=== PATIENT | female | born 1945 | race Caucasian/White ===

== ENCOUNTER 2021-08-29 19:22 | Observation (INO) | payer MEDICARE, SELFPAY ==
[2021-08-29 19:24] VITALS: BP 216/90; PULSE 79; RESP 18; TEMP 37.2; O2SAT 98; BMI 28.3
[2021-08-29 19:31] VITALS: BMI 28.3
--- NOTE | 2021-08-29 19:32 | ECG_ITS ---
APPROVED REPORT Exam: Resting ECG HR:84 bpm ECG Measurements Heart Rate 84 AXES [place] 184 P 43 QRSd 142 QRS 89 QT 410 T 51 QTc 451 Conclusion SINUS RHYTHM RIGHT BUNDLE BRANCH BLOCK [120+ ms QRS DURATION, UPRIGHT V1, 40+ ms S IN I/aVL/V4/V5/V6] ST DEPRESSION, CONSIDER SUBENDOCARDIAL INJURY [0.1+ mV ST DEPRESSION] ABNORMAL ECG UNCONFIRMED REPORT Electronically signed by : Hung Gomes MD 08/30/2021 15:49:13
--- NOTE | 2021-08-29 19:32 | XR_ITS ---
PROCEDURE INFORMATION: Exam: XR Chest Exam date and time: 08/29/2021 7:36 PM Age: 76 years old Clinical indication: Pain; Other: Epigastric; Additional info: Chest burning TECHNIQUE: Imaging protocol: XR of the chest. Views: 2 views. COMPARISON: CR CXR CHEST(2 VIEWS-NOT PORTABLE) 06/28/2016 3:21 PM FINDINGS: Lungs: No consolidation. Pleural spaces: No pleural effusion. No pneumothorax. Heart/Mediastinum: Stable prominent cardiac silhouette. Bones/joints: Degenerative changes of the shoulders. Intraperitoneal space: Calcified left upper quadrant mass as seen on prior examination. IMPRESSION: No acute cardiopulmonary process.
[2021-08-29 19:51] LABS: Basophils # 0.1 K/mm3 (0-0.2); Eosinophils # 0.6 K/mm3 (0.0-0.4); Hematocrit 30.1 % (37.0-47.0); Hemoglobin 10.2 g/dL (12.2-16.2); Lymphocytes # 2.1 K/mm3 (0.7-4.5); Lymphocytes % 24.5 % (10-50); Mean Corpuscular HGB Conc 33.8 g/dL (31.8-35.4); Mean Corpuscular Hemoglobin 27.2 pg (27.0-31.2); Mean Corpuscular Volume 80.3 fl (81-99); Mean Platelet Volume 7.9 fl (7.4-10.4); Monocytes # 0.4 K/mm3 (0.1-1.0); Monocytes % 4.4 % (1.7-9.3); Neutrophils # 5.4 K/mm3 (1.8-7.8); Platelet Count 278 K/mm3 (142-424); Red Blood Count 3.75 M/mm3 (4.20-5.40); Red Cell Distribution Width 15.5 % (11.5-17.5); White Blood Count 8.6 K/mm3 (4.8-10.8)
[2021-08-29 19:53] LABS: Chloride 105 mmol/L (98-107)
[2021-08-29 19:54] LABS: Potassium 4.2 mmoL/L (3.5-5.1); Sodium 140 mmol/L (136-145)
[2021-08-29 19:56] LABS: Alanine Aminotransferase 17 U/L (12-78); Amylase 111 U/L (30-110); Anion Gap 13.2 mEq/L (5-15); Aspartate Amino Transferase 34 U/L (14-36); Bilirubin,Unconjugated 0.2 mg/dL (0.0-1.1); Blood Urea Nitrogen 13 mg/dl (7-17); Carbon Dioxide 26 mmol/L (22.0-30.0); Creatinine Clearance Estimated 49 mL/min (50-200); Estimated Glomerular Filt Rate 48 ml/min (>60); GFR (African American) 58 ML/MIN (>60)
[2021-08-29 19:57] LABS: Albumin Level 3.8 g/dl (3.5-5.0); Alkaline Phosphatase 81 U/L (38-126); Bilirubin,Direct 0.1 mg/dl (0.0-0.4); Bilirubin,Indirect 0.2 mg/dL (0.0-0.9); Bilirubin,Total 0.3 mg/dl (0.2-1.3); Calcium 9.6 mg/dl (8.4-10.2); Glucose 128 mg/dl (74-100); Lipase 432 U/L (23-300); Total Protein,Serum 6.7 g/dl (6.3-8.2)
[2021-08-29 20:03] LABS: C-Reactive Protein 18.3 mg/L (0-4)
--- NOTE | 2021-08-29 20:08 | HMH.EDCP ---
ED Disposition Clinical Impression: Heart murmur, systolic Chest pain Qualifiers: Chest pain type: precordial pain Qualified Code(s): R07.2 - Precordial pain Disposition: Admitted as Observation Condition on Discharge: Good Referrals: Ivy Irene APRN [Primary Care Provider] - - Critical Care Critical Care Time: No Attestation: On 08/29/21, the high probability of a clinically significant, sudden or life threatening deterioration of the following system(s) required my full and direct attention, intervention and personal management. The time I documented below is in addition to time spent performing reported procedures but includes the following listed in this critical care notation. Medical Decision Making - Medical Records Medical records reviewed: Yes: I reviewed the patient's medical records. - Mike Inquiry Pt receiving controlled substance: No Vital Signs: 08/29/21 19:24 Temperature 99.0 F Temperature Source Oral Pulse Rate [Right] 79 Respiratory Rate 18 Blood Pressure [Right Arm] 216/90 H Blood Pressure Mean [Right Arm] 132 02 Sat by Pulse Oximetry 98 - Lab Data Lab results reviewed: Yes: I reviewed the patient's lab results. Lab Results 08/29/21 19:40: WBC 8.6, RBC 3.75 L, Hgb 10.2 L, Hct 30.1 L, MCV 80.3 L, MCH 27.2, MCHC 33.8, RDW 15.5, Plt Count 278, MPV 7.9, Neut % (Auto) 63.0, Lymph % (Auto) 24.5, Zavala % (Auto) 4.4, Eos % (Auto) 7.0, Baso % (Auto) 1.0, Neut # (Auto) 5.4, Lymph # (Auto) 2.1, Zavala # (Auto) 0.4, Eos # (Auto) 0.6 H, Baso # (Auto) 0.1, ESR 116 H 08/29/21 19:40: Sodium 140, Potassium 4.2, Chloride 105, Carbon Dioxide 26, Anion Gap 13.2, BUN 13, Creatinine 1.10 H, Estimated Creat Clear 49, Estimated GFR 48 L, Est GFR ( Amer) 58 L, Glucose 128 H, Calcium 9.6, Total Bilirubin 0.3, Direct Bilirubin 0.1, Conjugated Bilirubin 0.0, Indirect Bilirubin 0.2, Unconjugated Bilirubin 0.2, AST 34, ALT 17, Alkaline Phosphatase 81, Troponin I < 0.01, C-Reactive Protein 18.3 H, Total Protein 6.7, Albumin 3.8, Amylase 111 H, Lipase 432 H, Procalcitonin 0.093 08/29/21 20:21: SARS-CoV-2 (PCR) Not detected, Influenza A Untype (PCR) Not detected, Influenza Type B (PCR) Not detected Result diagrams: 08/29/21 19:40 08/29/21 19:40 Orders (Tests/Meds): ED MEDICATIONS Generic Name Dose Route Start Last Admin Trade Name Freq PRN Reason Stop Dose Admin Sodium Chloride 1,000 mls @ 999 mls/hr 08/29/21 19:45 08/29/21 19:47 Sod Chlor 0.9% 1000ml Bag IV 08/29/21 20:45 999 mls/hr .Q1H1M MENA Administration Sodium Chloride 8 ml 08/29/21 20:12 08/29/21 20:14 Sodium Chloride 0.9% 10ml Vial IV 09/28/21 20:11 8 ml NEEDED PRN Administration dilute pepcid Discontinued Medications Generic Name Dose Route Start Last Admin Trade Name Freq PRN Reason Stop Dose Admin Aspirin 324 mg 08/29/21 19:38 08/29/21 19:43 Aspirin 81mg Chewable Tablet PO 08/29/21 19:39 324 mg ONCE ONE Administration Famotidine 20 mg 08/29/21 20:12 08/29/21 20:14 Famotidine 20mg/2ml Vial IV 08/29/21 20:13 20 mg ONCE ONE Administration Iopamidol 75 ml 08/29/21 20:54 08/29/21 20:56 Iopamidol-370 (76%);100ml Bottle IV 08/29/21 20:55 75 ml ONCE ONE Administration Metoclopramide HCl 10 mg 08/29/21 20:12 08/29/21 20:14 Metoclopramide Hcl 10mg/2ml Vial IVP 08/29/21 20:13 10 mg ONCE ONE Administration Morphine Sulfate 4 mg 08/29/21 20:07 08/29/21 20:10 Morphine 4mg/Ml Syringe IV 08/29/21 20:08 4 mg ONCE ONE Administration Nitroglycerin 0.4 mg 08/29/21 19:38 08/29/21 19:43 Nitroglycerin 0.4mg Sl Tablet SL 08/29/21 19:39 0.4 mg ONCE ONE Administration Nitroglycerin 1 gm 08/29/21 19:50 08/29/21 19:51 Nitroglycerin 1 Gm Ointment TD 08/29/21 19:51 1 gm ONCE ONE Administration Ondansetron HCl 4 mg 08/29/21 20:07 08/29/21 20:10 Ondansetron 4mg/2ml Vial IV 08/29/21 20:08 4 mg ONCE ONE Administration Sodium Chloride
--- NOTE | 2021-08-29 20:11 | CT_ITS ---
PROCEDURE INFORMATION: Exam: CT Abdomen And Pelvis With Contrast Exam date and time: 08/29/2021 8:39 PM Age: 76 years old Clinical indication: Abdominal pain; Localized; Other: Straight up the middle; Additional info: Abd pain TECHNIQUE: Imaging protocol: Computed tomography of the abdomen and pelvis with contrast. Radiation optimization: All CT scans at this facility use at least one of these dose optimization techniques: automated exposure control; mA and/or kV adjustment per patient size (includes targeted exams where dose is matched to clinical indication); or iterative reconstruction. Contrast material: ISOVUE; Contrast volume: 75 ml; Contrast route: IV; COMPARISON: RUQ US RUQ-(ABD LTD)1ORGAN/QUAD/FU 03/08/2016 9:34 AM FINDINGS: Heart: Cardiomegaly. Liver: Normal. No mass. Gallbladder and bile ducts: No calcified stones. No ductal dilation. Pancreas: Normal enhancement. No ductal dilation. Spleen: 5.1 x 4.1 cm rim calcified anterior inferior splenic lesion. Adrenal glands: No mass. Kidneys and ureters: Peripelvic cysts. No hydronephrosis. Stomach and bowel: Diverticulosis coli without evidence for diverticulitis. Appendix: No evidence of appendicitis. Intraperitoneal space: No free air. No significant fluid collection. Vasculature: Calcified atherosclerosis. No aneurysm. Lymph nodes: No enlarged lymph nodes. Urinary bladder: No acute abnormality. Reproductive: No acute abnormality. Bones/joints: Degenerative changes of the spine. No fracture. Soft tissues: Right fat containing groin hernia measuring 4.3 x 2.5 cm. Fat containing ventral hernia measuring 4.6 x 2.4 cm. IMPRESSION: 1. 5.1 x 4.1 cm rim calcified anterior inferior splenic lesion most compatible with a posttraumatic pseudocyst. 2. Diverticulosis coli without evidence for diverticulitis. 3. Ventral and right groin fat containing hernias described above.
[2021-08-29 20:12] LABS: Troponin I < 0.01 ng/ml (0.00-0.034)
[2021-08-29 20:20] LABS: Erythrocyte Sedimentation Rate 116 mm/hr (0-30)
[2021-08-29 20:31] LABS: Coronavirus 19, PCR Not Detected (NotDetected); Influenza A, PCR Not Detected (NotDetected); Influenza B, PCR Not Detected (NotDetected)
[2021-08-29 20:34] LABS: Procalcitonin 0.093 ng/mL (0.0-2.0)
--- NOTE | 2021-08-29 21:56 | PC.NURSE ---
Dr. Weiss on phone with Dr. Swenson re: admission
--- NOTE | 2021-08-29 22:08 | PC.NURSE ---
Patient admitted to [address] Swenson with chest pain.
[2021-08-29 22:43] VITALS: BP 156/75; PULSE 78; RESP 18; TEMP 37.2; O2SAT 98
[2021-08-29 22:46] VITALS: BP 150/63; PULSE 77; RESP 16; TEMP 36.9; O2SAT 94; BMI 28.9; BMI 29.2
--- NOTE | 2021-08-29 23:08 | PC.NURSE ---
Pt ambulatory to bathroom with no assistance
--- NOTE | 2021-08-29 23:15 | PC.NURSE ---
patient up to floor via wheelchair @ this time.
[2021-08-29 23:25] VITALS: PULSE 80
[2021-08-29 23:49] LABS: Troponin I < 0.01 ng/ml (0.00-0.034)
[2021-08-30] VITALS: PULSE 80
[2021-08-30 01:50] LABS: Troponin I < 0.01 ng/ml (0.00-0.034)
[2021-08-30 03:23] VITALS: BP 146/69; PULSE 73; RESP 16; TEMP 36.8; O2SAT 94
[2021-08-30 04:00] VITALS: PULSE 70
[2021-08-30 05:00] VITALS: BMI 29.2
--- NOTE | 2021-08-30 05:26 | PC.NURSE ---
Around 0330 pt c/o a constant chest ache that radiates to back - rating it 5/10. EKG obtained and took to ED MD, no acute changes, showing BBB. . Pt still has nitro paste on from ED. Vitals stable, no other accompanying symptoms, troponins have been neg x 3. Dr. Swenson contacted. New orders obtained. Medicated per JUN. When pt took ordered medications she said it hurt to swallow. No other complaints at this time and is resting comfortably. Pt is currently NPO. Cardiology consult ordered. Call light in reach.
[2021-08-30 06:36] LABS: Basophils % 0.6 % (0.1-2.0); Eosinophils # 0.3 K/mm3 (0.0-0.4); Eosinophils % 4.8 % (0.1-12.0); Hematocrit 25.3 % (37.0-47.0); Lymphocytes # 1.4 K/mm3 (0.7-4.5); Lymphocytes % 22.3 % (10-50); Mean Corpuscular HGB Conc 33.5 g/dL (31.8-35.4); Mean Corpuscular Hemoglobin 26.9 pg (27.0-31.2); Mean Corpuscular Volume 80.3 fl (81-99); Mean Platelet Volume 7.9 fl (7.4-10.4); Monocytes # 0.4 K/mm3 (0.1-1.0); Monocytes % 5.5 % (1.7-9.3); Neutrophils # 4.3 K/mm3 (1.8-7.8); Neutrophils % 66.8 % (37.0-80.0); Platelet Count 224 K/mm3 (142-424); Red Blood Count 3.15 M/mm3 (4.20-5.40); Red Cell Distribution Width 15.4 % (11.5-17.5); White Blood Count 6.4 K/mm3 (4.8-10.8)
[2021-08-30 06:44] LABS: Anion Gap 9.7 mEq/L (5-15); Blood Urea Nitrogen 11 mg/dl (7-17); Calcium 8.8 mg/dl (8.4-10.2); Carbon Dioxide 25 mmol/L (22.0-30.0); Chloride 108 mmol/L (98-107); Creatinine Clearance Estimated 56 mL/min (50-200); Estimated Glomerular Filt Rate 61 ml/min (>60); GFR (African American) 73 ML/MIN (>60); Glucose 122 mg/dl (74-100); Magnesium 1.6 mg/dl (1.6-2.3); Potassium 3.7 mmoL/L (3.5-5.1); Sodium 139 mmol/L (136-145)
[2021-08-30 06:49] LABS: Hemoglobin 8.5 g/dL (12.2-16.2)
--- NOTE | 2021-08-30 07:18 | P.CONPHA_ITS ---
[facility] Pharmacy VTE Monitoring - Patient Demographics Admission date: 08/29/21 Report Date: 08/30/21 Time: 07:18 Allergies/Adverse Reactions: Patient Allergies cefaclor Allergy (Unknown, Verified 08/29/21 19:38) I-RASH Penicillins Allergy (Unknown, Verified 08/29/21 19:38) I-RASH Sulfa (Sulfonamide Antibiotics) Allergy (Unknown, Verified 08/29/21 19:38) I-RASH Height: 1.6 m Weight: 74.843 kg Patient Problems: Current Active Problems Chest pain (Acute) Heart murmur, systolic (Acute) - VTE Risk Labs: VTE Related Lab Results Hgb 8.5 g/dL (12.2-16.2) L D 08/30/21 05:39 Hct 25.3 % (37.0-47.0) L 08/30/21 05:39 Plt Count 224 K/mm3 (142-424) 08/30/21 05:39 BUN 11 mg/dl (7-17) 08/30/21 05:39 Creatinine 0.90 mg/dl (0.52-1.04) 08/30/21 05:39 Estimated Creat Clear 56 mL/min (50-200) 08/30/21 05:39 Was VTE Risk Assessment Performed: Yes VTE Score: 4 VTE Risk Level: Low Risk - Prophylaxis VTE Prophylaxis Ordered?: Yes Types of VTE Prophylaxis: TEDS Knee High Location of Applied Device: Bilateral Lower Extremeties
[2021-08-30 08:00] VITALS: BP 178/69; PULSE 67; PULSE 74; RESP 16; TEMP 37.1; O2SAT 94
--- NOTE | 2021-08-30 08:25 | HMH.PHAINT ---
MEDICATION RECONCILIATION COMPLETED ON PATIENT USING EXTERNAL FILL HISTORY FROM PHARMACY. -SRIRAM DAVIS, [employer]
--- NOTE | 2021-08-30 09:05 | US_ITS ---
FINAL REPORT CLINICAL HISTORY: abd pain, mid chest pain FINDINGS: Sonographic images of the right upper quadrant were obtained. The pancreas is partially obscured. There is mild fatty infiltration of the liver. There is a mild amount of sludge in the gallbladder. There is no evidence of biliary ductal dilatation.The common duct measures 4mm. The right kidney measures 9.0 cm in length. There is a cystic area in the lower pole of the right kidney which may represent focal hydronephrosis or a parapelvic cyst. IMPRESSION: Fatty liver. Sludge in the gallbladder. Cystic area in the lower pole of right kidney may represent focal hydronephrosis or a parapelvic cyst. Reviewed, Interpreted and Dictated by Oswaldo Tony III, MD Transcribed by Chari Toussaint Authenticated by Oswaldo Tony III, MD on 08/30/2021 09:19:[address] [facility]
--- NOTE | 2021-08-30 12:17 | HMH.HPDC ---
General - General Admission date:: 08/29/21 Discharge date: 08/30/21 *Admission Date: 08/29/21 *Chief complaint: Epigastric pain *History of present illness: 76-year-old white female with overall good functional status and no cardiac history, who over the past couple of days has had increasing problems with epigastric pain that has been food related. She noticed that several days ago she was placed on antibiotics and high-dose ibuprofen for a dental abscess by her dentist. She is been taking high-dose ibuprofen for about a week and a couple days ago began to have significant epigastric pain when she swallowed food. Came to the emergency department. Troponins were negative, lipase was slightly elevated. She was admitted to hospital overnight for further observation. [facility] History I have reviewed the patient's past medical history: Yes Medical History: Reports:: Diabetes Mellitus Type 2, Heart Murmur, Hyperlipidemia, Hypertension Denies:: Cancer, Diabetes Mellitus Type 1, MRSA *Have you ever received a pneumonia vaccine?: Yes *Have you received a flu vaccine this season?: Yes Other Medical History: Reports: Arthritis, Cataracts, Glaucoma, Sinus Problems, Thyroid Disease Laterality Cases: Bilateral: Cataract Other Surgeries: Yes: (x2) Amputation: No Fractures: No - *Social History Last grade of school completed: Advanced degree Smoking Status: Never smoker Alcohol Intake: never *Occupational Status:: retired Housing: house Household Members: spouse *Travel in the last 8 weeks: None Family Hx:: Cancer, Coronary Artery Disease, Diabetes, Heart Attack Review of Systems - Review of Systems Review of systems:: pertinent systems reviewed and negative unless documented below - *Neurologic Denies seizure-like activity Exam Vital signs and Labs for Last 24 Hours: Temp Pulse Resp BP Pulse Ox 98.8 F 74 16 178/69 H 94 L 08/30/21 08:00 08/30/21 08:00 08/30/21 08:00 08/30/21 08:00 08/30/21 08:00 Laboratory Results - last 24 hr 08/29/21 19:40: WBC 8.6, RBC 3.75 L, Hgb 10.2 L, Hct 30.1 L, MCV 80.3 L, MCH 27.2, MCHC 33.8, RDW 15.5, Plt Count 278, MPV 7.9, Neut % (Auto) 63.0, Lymph % (Auto) 24.5, Pierce % (Auto) 4.4, Eos % (Auto) 7.0, Baso % (Auto) 1.0, Neut # (Auto) 5.4, Lymph # (Auto) 2.1, Pierce # (Auto) 0.4, Eos # (Auto) 0.6 H, Baso # (Auto) 0.1, ESR 116 H 08/29/21 19:40: Sodium 140, Potassium 4.2, Chloride 105, Carbon Dioxide 26, Anion Gap 13.2, BUN 13, Creatinine 1.10 H, Estimated Creat Clear 49, Estimated GFR 48 L, Est GFR ( Amer) 58 L, Glucose 128 H, Calcium 9.6, Total Bilirubin 0.3, Direct Bilirubin 0.1, Conjugated Bilirubin 0.0, Indirect Bilirubin 0.2, Unconjugated Bilirubin 0.2, AST 34, ALT 17, Alkaline Phosphatase 81, Troponin I < 0.01, C-Reactive Protein 18.3 H, Total Protein 6.7, Albumin 3.8, Amylase 111 H, Lipase 432 H, Procalcitonin 0.093 08/29/21 20:21: SARS-CoV-2 (PCR) Not detected, Influenza A Untype (PCR) Not detected, Influenza Type B (PCR) Not detected 08/29/21 23:00: Troponin I < 0.01 08/30/21 01:15: Troponin I < 0.01 08/30/21 05:39: WBC 6.4 D, RBC 3.15 L, Hgb 8.5 L D, Hct 25.3 L, MCV 80.3 L, MCH 26.9 L, MCHC 33.5, RDW 15.4, Plt Count 224, MPV 7.9, Neut % (Auto) 66.8, Lymph % (Auto) 22.3, Pierce % (Auto) 5.5, Eos % (Auto) 4.8, Baso % (Auto) 0.6, Neut # (Auto) 4.3, Lymph # (Auto) 1.4, Pierce # (Auto) 0.4, Eos # (Auto) 0.3, Baso # (Auto) 0.0 08/30/21 05:39: Sodium 139, Potassium 3.7, Chloride 108 H, Carbon Dioxide 25, Anion Gap 9.7, BUN 11, Creatinine 0.90, Estimated Creat Clear 56, Estimated GFR 61, Est GFR ( Amer) 73 D, Glucose 122 H, Calcium 8.8, Magnesium 1.6 I & O for Last 24 hours: Intake & Output 08/28/21 08/29/21 08/30/21 08/31/21 11:59 11:59 11:59 11:59 Intake Total 300 / 300 Balance 300 / 300 Weight 165 lb 0.009 oz - Constitutional no acute distress - *Routine HEENT Exam Head: Present: normocephalic Eye: Present: EOMI, PERRL ENT: Present: mucous membra
[2021-08-30 12:22] VITALS: BP 140/49; PULSE 67; RESP 16; TEMP 36.8; O2SAT 96
--- NOTE | 2021-08-31 14:13 | CARE MANAGER ---
Contacted patient related to hospital discharge. She states she is doing well. She picked up her medication and is aware of her follow up appointment. She denies any questions or concerns.
== END 2021-08-30 13:12 | disposition home or self-care (01) ==
LOC: ER 22:13 → 2ND 22:46
PROVIDERS: Emergency Medicine; Admitting Provider Internal Medicine Adolescent Medicine; Emergency Provider Emergency Medicine; PCP Nurse Practitioner Family; Visit Provider Internal Medicine Adolescent Medicine
DX: K20.90 Esophagitis, unspecified without bleeding (principal); R10.13 Epigastric pain; R07.9 Chest pain, unspecified; E11.9 Type 2 diabetes mellitus without complications; E78.5 Hyperlipidemia, unspecified; I10 Essential (primary) hypertension; Z79.84 Long term (current) use of oral hypoglycemic drugs; Z79.899 Other long term (current) drug therapy; Z20.822 Contact with and (suspected) exposure to COVID-19
CPT/HCPCS: G0378; 36415; 71046; 74177; 76705; 80048; 80076; 82150; 83690; 83735; 84145; 84484; 85025; 85651; 86140; 93005; 93306; 96375; 99285; C9803; J2405; Q9967; U0003; U0005

== ENCOUNTER 2023-02-11 08:57 | Emergency (ER) | payer MEDICARE, SELFPAY ==
[2023-02-11 09:15] VITALS: BP 130/87; PULSE 75; RESP 18; TEMP 36.8; O2SAT 97; BMI 28.1
--- NOTE | 2023-02-11 09:32 | EXP.UTC ---
Discharge Plan Disposition Patient Disposition: Home, Self-Care Condition: Good Prescriptions Prescriptions: New azithromycin [Zithromax] 250 mg tablet See Rx Instructions .ROUTE .COMPLEX Qty: 6 0RF Rx Instructions: For 250 mg dose pack: take 500 mg today (day 1), then 250 mg for 4 days (days 2-5) benzonatate 100 mg capsule 100 mg PO BID PRN (Reason: cough) 3 Days Qty: 6 0RF No Action amlodipine 2.5 MG tablet 5 mg PO DAILY simvastatin 40 MG tablet 40 mg PO HS levothyroxine 88 MCG tablet 88 mcg PO DAILY hydrochlorothiazide 25 MG tablet 25 mg PO DAILY sitagliptin phos-metformin 1 EACH tablet, ER multiphase 24 hr 1 tab PO BID aspirin 81 MG tablet,delayed release (DR/EC) 81 mg PO DAILY lisinopril 40 MG tablet 40 mg PO DAILY timolol maleate 5 ML bottle 1 drp OP Q12H pantoprazole 40 MG tablet,delayed release (DR/EC) 40 mg PO BID Qty: 60 0RF latanoprost 0.005 % drops 1 drp Eye-Left DAILY Referrals Follow up/Referrals: Hung Gomes MD [Primary Care Provider] - See instructions Activity Restrictions/Add. Instructions Additional Instructions/Restrictions: Start antibiotics today be sure to take it as ordered with the full length of time although you should start feeling better in 24-48 hours. Change toothbrush and toothpaste 24-48 hours after starting antibiotics Tylenol or Motrin as needed for fever or pain Encourage fluids, water, Gatorade, Powerade, try cold fluids, popsicles, ice cream will make it feel better You are contagious for 24 hours. Avoid kissing anyone, no eating or drinking after anyone. You are contagious. Follow-up the ER for new or worsening symptoms or no noticeable improvement over the next 24-48 hours. Follow-up with PCP this week. Clinical Impressions Clinical Impression: Strep sore throat Instructions Patient Instructions: DI for Strep Throat Discharge ED Provider: Christal ([facility] HPI General Stated complaint: cough Mode of Arrival: Ambulatory Source of Information: Patient Limitations: No Limitations Time Seen by Provider: 02/11/23 09:32 Description of Symptoms (Recalled from Triage Doc. by RN): Productive cough HEENT Symptoms (Recalled from RN notes): Yes Resp Symptoms (Recalled from RN notes): No Skin Symptoms (Recalled from RN notes): No MS Symptoms (Recalled from RN notes): No Functional Status (Recalled from RN notes): n/a History of Present Illness Provider Complaint: 77 yr old female presents for sore throat and coughing up yellow drainage sine monday, granddaughter has strep Related Data Home Medications Medication Instructions Recorded Confirmed amlodipine 2.5 mg tablet 5 mg PO DAILY Hypertension 08/29/21 02/11/23 aspirin 81 mg tablet,delayed 81 mg PO DAILY HEART HEALTH 08/29/21 02/11/23 release hydrochlorothiazide 25 mg tablet 25 mg PO DAILY Fluid 08/29/21 02/11/23 levothyroxine 88 mcg tablet 88 mcg PO DAILY thyorid 08/29/21 02/11/23 lisinopril 40 mg tablet 40 mg PO DAILY Hypertension 08/29/21 02/11/23 simvastatin 40 mg tablet 40 mg PO HS Cholesterol 08/29/21 02/11/23 sitagliptin phos 50 mg-metformin 1 tab PO BID Diabetes 08/29/21 02/11/23 ER 1,000 mg tablet,extend rel 24h mp timolol maleate 0.5 % eye drops 1 drp ophthalmic (eye) Q12H 08/30/21 02/11/23 INTRAOCULAR PRESSURE latanoprost 0.005 % eye drops 1 drp Eye-Left DAILY 02/11/23 02/11/23 Previous Rx's Medication Instructions Recorded pantoprazole 40 mg tablet,delayed 40 mg PO BID #60 tabs 08/30/21 release azithromycin 250 mg tablet See Rx Instructions PO .COMPLEX #6 02/11/23 (Zithromax) tabs benzonatate 100 mg capsule 100 mg PO BID PRN cough 3 days #6 02/11/23 caps Allergies Allergy/AdvReac Type Severity Reaction Status Date / Time cefaclor Allergy Unknown I-RASH Verified 02/11/23 09:31 Penicillins Allergy Unknown I-RASH Verified 02/11/23 09:31 Sulfa (Sulfonamide Allergy Unknown I-RASH Erik
[2023-02-11 09:53] LABS: UTC Strep Screen (Rapid) Negative (Negative)
[2023-02-11 10:11] VITALS: BP 130/87; PULSE 75; RESP 18; TEMP 36.8; O2SAT 97
== END 2023-02-11 10:11 | disposition home or self-care (01) ==
PROVIDERS: Emergency Provider Nurse Practitioner Family; PCP Internal Medicine Adolescent Medicine
DX: J02.0 Streptococcal pharyngitis (principal); R05.9 Cough, unspecified
CPT/HCPCS: 87880; 99204; 99212; G0463

== ENCOUNTER 2023-04-28 09:52 | Day surgery (SDC) | payer MEDICARE, SELFPAY ==
[2023-04-27 10:16] VITALS: BMI 28.0
[2023-04-28] MEDS: LACTATED RINGERS 1000ML 1,000 ML 25 ML IV (10:12)
[2023-04-28 10:14] VITALS: BP 191/61; PULSE 75; RESP 18; TEMP 36.4; O2SAT 97
[2023-04-28 10:28] LABS: POC Glucose,Bedside 172 (70-110)
--- NOTE | 2023-04-28 10:37 | P.PNANES_ITS ---
[facility] Disclaimer: The information contained in this section may have been updated after the patient was seen, as this information can be updated by other users. Medical History Diabetes GERD (gastroesophageal reflux disease) History of cataract HLD (hyperlipidemia) HTN (hypertension) HTN (hypertension) Hypothyroid Surgical History History of section History of colonoscopy Family History Other Colon cancer Family history of diabetes mellitus Family history of heart disease Social History Smoking Status: Never smoker alcohol intake: never substance use type: denies use current occupational status: retired Travel in the last 8 weeks: Inside the [place] household members: spouse housing: house caffeine: No H Anesthesia Checklist Patient Identification Patient Identification: Arm Band and Verbal (Name & ) Structural Data Admitted From: Home Planned Operative Procedure/s: Colonoscopy Consent for Planned Operative Procedure(s) Verified: Yes NPO Status Verified Time NPO: 00:00 Airway Assessment Mallampati Score:: Class III C-Spine Mobility Assessed: Yes TMJ Mobility Assessed: Yes Dentition: Poor Dentition Neurological Assessment Level of Consciousness: Awake Hx Seizures: No Numbness or tingling in extremities: No Anesthesia Plan Anesthesia Risk discussed: Yes Anesthesia Plan: Verified ASA Class: III Anesthesia Type: MAC
--- NOTE | 2023-04-28 10:37 | HMH.SCOPE ---
Procedure: Date: 04/28/23 Patient Date of :: 1945 Procedure Performed:: Total colonoscopy to terminal ileum Indications:: Patient is a 78-year-old female. She presents for screening colonoscopy. She has a rather strong family history of colon cancer with colon cancer in her father, 2 paternal uncles, a paternal aunt, 2 paternal cousins. She had previous colonoscopies with Dr. Chuy Colvin in [place]. Dr. Louis had performed her last colonoscopy on 06/13/2016. She had 4 tubular adenomas removed. He had recommended 5-year follow-up. Performing Provider:: Oswaldo Navarro MD Referring Provider:: Hung Gomes MD Sedation:: MAC sedation Procedure:: Patient history was obtained and appropriate physical examination was performed. Patient's medications and allergies were reviewed. Informed consent was obtained after explaining the benefits, alternatives, and risks of the procedure including, but not limited to, bleeding, perforation, missed lesions, and adverse reaction to anesthesia medications. Patient was transported to endoscopy procedure room. Patient was connected to monitoring devices. Throughout the procedure the patient's blood pressure, pulse, and oxygen saturations were monitored continuously. Patient identification and planned procedure were verified by the staff. Patient was positioned in lateral decubitus position. Digital anorectal exam was performed. Variable stiffness Olympus colonoscope was inserted and advanced under direct visualization to the cecum. Adequacy of the colonic preparation was noted. The colonoscope was advanced a short distance into the terminal ileum. The colonoscope was then slowly withdrawn while carefully examining the color, texture, anatomy, and integrity of the mucosoa circumferentially. Within the rectum retroflexion was performed. Colonoscope was then withdrawn. . She has some degree of pandiverticulosis with most pronounced distal sigmoid diverticuli which was quite significant. There were no notable polyps. She had internal anal papillae. Findings:: Diverticulosis Anal papillae Recommendations:: Consider repeat colonoscopy 5 years given history of adenomatous polyps and significant family history. However, consideration may be also given for possible Cologuard testing. Complications:: None immediately apparent Estimated blood obtained (mL): 0 Colonoscopy Component Colonoscopy Component Was a colonoscopy performed during today's procedure?: Yes Recommended follow up colonoscopy of at least 10 years?: No If no, follow up colonoscopy recommended in ___ years?: See above Reason for not recommending >/= 10 yr follow-up interval?: See above
[2023-04-28 10:46] VITALS: O2SAT 97
[2023-04-28 11:15] VITALS: BP 114/53; PULSE 74; RESP 12; TEMP 36.4; O2SAT 100
[2023-04-28 11:25] VITALS: BP 95/53; PULSE 76; RESP 14; O2SAT 100
[2023-04-28 11:35] VITALS: BP 91/46; PULSE 63; RESP 16; O2SAT 100
[2023-04-28 11:45] VITALS: BP 125/63; PULSE 67; RESP 16; O2SAT 100
--- NOTE | 2023-04-28 11:54 | SUR.PHASEII ---
1115- oral airway present on arrival 1131- oral airway removed at this time
== END 2023-04-28 11:55 | disposition home or self-care (01) ==
PROVIDERS: Surgery; PCP Internal Medicine Adolescent Medicine; Visit Provider Surgery
PROC: 0DJD8ZZ Inspection of Lower Intestinal Tract, Via Natural or Artificial Opening Endoscopic (ICD-10-PCS; CPT G0105; principal; 2023-04-28 11:00)
DX: Z12.11 Encounter for screening for malignant neoplasm of colon (principal); Z86.010 Personal history of colon polyps; Z80.0 Family history of malignant neoplasm of digestive organs; K57.30 Diverticulosis of large intestine without perforation or abscess without bleeding; K62.89 Other specified diseases of anus and rectum; E11.9 Type 2 diabetes mellitus without complications
CPT/HCPCS: G0105; 82962

== ENCOUNTER 2023-06-14 08:53 | Outpatient (CLI) | payer MEDICARE, SELFPAY ==
--- NOTE | 2023-06-14 08:55 | XR_ITS ---
FINAL REPORT TECHNIQUE: Bone densitometry calculations of the lumbar spine and left hip were obtained. CLINICAL HISTORY: OSTEOPOROSIS COMPARISON: None FINDINGS: Using L1-4, the bone mineral density of the spine is 1.28 g/cm2, corresponding to T-score of 2.1 and a Z score of 4.8. This is within the range of normal. Using the left hip, the bone mineral density of the femoral neck is 0.863 g/cm2, corresponding to a T-score of 0.1 and a Z-score of 2.4. This is within the range of normal. NOTE: T-score: Standard deviation compared with peak bone mass of young adult mean. *Following the recommendations of the International Society of Bone densitometry, classification of hip BMD is based on the lower of two T-scores; total hip or femoral neck. IMPRESSION: 1. Bone mineral density of the lumbar spine within the range of normal. 2. Bone mineral density of the left femoral neck within the range of normal. Reviewed, Interpreted and Dictated by Ivett Quarles MD Transcribed by Vy Pham Authenticated and [facility]
== END 2023-06-14 23:59 ==
LOC: RAD 08:53
PROVIDERS: PCP Internal Medicine Adolescent Medicine; Visit Provider Internal Medicine Adolescent Medicine
DX: M81.0 Age-related osteoporosis without current pathological fracture (principal); Z13.820 Encounter for screening for osteoporosis
CPT/HCPCS: 77080

== ENCOUNTER 2024-05-15 10:51 | Outpatient (CLI) | payer MEDICARE, SELFPAY ==
--- NOTE | 2024-05-15 10:55 | CA_ITS ---
APPROVED REPORT EXAM: Comprehensive 2D, Doppler, and color-flow Echocardiogram Blackener: ERIN Howe, RVS Ht: 5 ft 3 in Wt: 160lbs BSA: 1.76 BP: 130/78 mmHg Indications: APPLE, HTN, HLD, GERD,DM Echo Enhancing Agent Comments: TDS-body habitus 2D Dimensions IVSd 1.29 cm F: 0.6-1.0 LVEF (Visual) 69.40 % PWd 0.98 cm F: 0.6 - 1.0 LA Volume 94.10 mL LVDd 5.05 cm F: 3.9 - 5.3 LA Volume Index 53.47 mL/m2 (M/F) 16-34 LVDs 3.07 cm F: 2.2 - 3.5 Left Atrium 3.80 cm F: 2.7 - 3.8 Ascending Aorta 3.13 cm F: 2.3 - 3.1 M-Mode Dimensions LA Diam 3.87 cm (1.9-4.0) TAPSE 2.13 (<1.7) LV Diastology E Decel Time 210 (160-240 msec) E/A Ratio 0.55 MED A' 9.30 cm/s LAT A' 9.00 cm/s Aortic Valve KIT Index 1.67 cm2/m2 AoV Peak Priyank. 132.0 (50-130 cm/s) AO Peak GR. 7.00 mmHg AO Mean GR. 2.70 (<5 mmHg) AO VTI 24.6 (18-25 cm) KIT (VTI) 3.00 (2.5-4.5 cm2) Mitral Valve MV A Velocity 100.0 (40-130 cm/s) E/A Ratio 0.55 Pulmonary Valve AL End VMAX 175.0 cm/s Left Ventricle The left ventricle is normal size. The left ventricular systolic function is normal. The left ventricular ejection fraction is within the normal range. There is increased LV wall thickness. There is normal LV segmental wall motion. Transmitral Doppler flow pattern suggests impaired LV relaxation. LVEF is 55%. Right Ventricle Right ventricle is mildly dilated. The right ventricular systolic function is normal. Atria Left atrium is moderately dilated. Right atrium is mildly dilated. There is no Doppler evidence of interatrial shunt. Aortic valve is mildly thickened. Aortic Valve There is no aortic valvular stenosis. No aortic regurgitation is present. Mitral Valve The mitral valve is normal in structure. No evidence of mitral valve stenosis. Trace mitral regurgitation. Tricuspid Valve Tricuspid valve is grossly normal in structure and function. Trace tricuspid regurgitation. There is insufficient TR jet to estimate RVSP. Pulmonic Valve The pulmonary valve is normal in structure. Trace pulmonic regurgitation. Great Vessels The aortic root is normal in size. The ascending aorta is not well-visualized. IVC is normal in size and collapses >50% with inspiration. Pericardium There is no pericardial effusion. Other Information Study Quality: Fair Conclusion Normal biventricular systolic function. Mild RV dilation. Biatrial dilation. No significant valvular stenosis or regurgitation. Electronically signed by : Trisha Wayne MD 05/20/2024 00:59:34
== END 2024-05-15 23:59 | disposition home or self-care (01) ==
LOC: RT 10:51
PROVIDERS: PCP Internal Medicine Adolescent Medicine; Visit Provider Internal Medicine Adolescent Medicine
DX: I51.7 Cardiomegaly (principal); R06.09 Other forms of dyspnea
CPT/HCPCS: 93306

== ENCOUNTER 2024-07-09 14:01 | Outpatient (CLI) | payer MEDICARE, SELFPAY ==
--- NOTE | 2024-07-09 | US_ITS ---
FINAL REPORT CLINICAL HISTORY: EDEMA,DM,HTN,HLD FINDINGS: ANKLE-BRACHIAL PRESSURE INDICES Pressure indices are as follows: RIGHT LOWER EXTREMITY: Ankle-brachial pressure index: 1.07 Comments: Normal LEFT LOWER EXTREMITY: Ankle-brachial pressure index: 1.22 Comments: Normal IMPRESSION: No evidence of significant obstructive peripheral vascular disease of the lower extremities Reviewed, Interpreted and Dictated by Ivett Quarles MD Transcribed by Ana Jones Authenticated and [facility]
== END 2024-07-09 23:59 | disposition home or self-care (01) ==
LOC: RT 14:02
PROVIDERS: PCP Internal Medicine Adolescent Medicine; Visit Provider Internal Medicine Adolescent Medicine
DX: R60.0 Localized edema (principal)
CPT/HCPCS: 93923

== ENCOUNTER 2024-07-19 08:44 | Outpatient (CLI) | payer MEDICARE, SELFPAY ==
[2024-07-19] MEDS: SODIUM CHLORIDE 0.9% 50ML BAG 50 ML IV (09:05)
[2024-07-19] MEDS: SODIUM CHLORIDE 0.9% 10ML FLUSH SYRINGE 10 ML IV (09:06)
[2024-07-19] MEDS: IRON SUCROSE COMPLEX 200 MG in 0.9 % SODIUM CHLORIDE 100 ML 220 MG IV (09:06)
[2024-07-19 09:40] VITALS: BP 147/56; PULSE 71; RESP 18; TEMP 36.7; O2SAT 99
== END 2024-07-19 09:45 | disposition home or self-care (01) ==
LOC: INF 08:45
PROVIDERS: PCP Internal Medicine Adolescent Medicine; Visit Provider Internal Medicine Adolescent Medicine
DX: D50.9 Iron deficiency anemia, unspecified (principal)
CPT/HCPCS: 96365; J1756

== ENCOUNTER 2024-07-26 08:44 | Outpatient (CLI) | payer MEDICARE, SELFPAY ==
[2024-07-26] MEDS: IRON SUCROSE COMPLEX 200 MG in 0.9 % SODIUM CHLORIDE 100 ML 220 MG IV (09:14)
[2024-07-26] MEDS: SODIUM CHLORIDE 0.9% 50ML BAG 50 ML IV (09:14)
[2024-07-26 09:20] VITALS: BP 144/62; PULSE 69; RESP 16; TEMP 36.3; O2SAT 100
[2024-07-26 09:50] VITALS: BP 153/66; PULSE 69; RESP 16
== END 2024-07-26 10:10 | disposition home or self-care (01) ==
LOC: INF 08:44
PROVIDERS: PCP Internal Medicine Adolescent Medicine; Visit Provider Internal Medicine Adolescent Medicine
DX: D50.9 Iron deficiency anemia, unspecified (principal)
CPT/HCPCS: 96365; J1756

== ENCOUNTER 2024-08-01 08:42 | Outpatient (CLI) | payer MEDICARE, SELFPAY ==
[2024-08-01 08:56] VITALS: BP 188/70; PULSE 70; RESP 20; TEMP 36.7; O2SAT 100
[2024-08-01] MEDS: IRON SUCROSE COMPLEX 200 MG in 0.9 % SODIUM CHLORIDE 100 ML 220 MG IV (08:56)
[2024-08-01] MEDS: SODIUM CHLORIDE 0.9% 10ML FLUSH SYRINGE 10 ML IV (08:56)
[2024-08-01] MEDS: SODIUM CHLORIDE 0.9% 50ML BAG 50 ML IV (08:56)
[2024-08-01 09:40] VITALS: BP 146/63; PULSE 67; RESP 20; O2SAT 99
== END 2024-08-01 09:40 | disposition home or self-care (01) ==
LOC: INF 08:43
PROVIDERS: PCP Internal Medicine Adolescent Medicine; Visit Provider Internal Medicine Medical Oncology
DX: D50.9 Iron deficiency anemia, unspecified (principal)
CPT/HCPCS: 96365; J1756

== ENCOUNTER 2024-08-09 08:42 | Outpatient (CLI) | payer MEDICARE, SELFPAY ==
--- OUTSIDE RECORDS SUMMARY | 2024-08-09 08:45 | XMS_ITS | Data Portability ---
Author Organization STEVEN ERIN [facility] [place] [facility] Address [address] [place] [address] Care Team Providers Care Intensive Care Unit Registered Nurse Name Role Phone SHELBY TAPIA Telephone Clerk Telegraph Office MARIAH CASTILLO Primary Care Provider [phone] Assessment No assessment recorded. Plan of Treatment Reminders Order Date Submit Date Provider Last Modified By Organization Details Last Modified Time Details Appointments LEVEL 2 2024 10:00A Angeles TAPIA MD Not available Not available Not available Lab None recorded. Referral None recorded. Procedures None recorded. Surgeries None recorded. Imaging None recorded. Medication Orders latanopro st 0.005 % eye drops 2023 024 [facility] 591, [address], [address], 07/17/2023 11:09:44 timolol maleate 0.5 % eye drops 2023 024 [facility], [address], [address], 07/17/2023 11:09:45 timolol maleate 0.5 % eye drops 2022 023 [facility] 591, [address], [address], 06/23/2022 12:45:[address] 0.005 % eye drops 2022 023 [facility], [address] [place], [address], 06/23/2022 12:45:24 Patient TargetsNo targets recorded. Patient Instructions Encounter Date Encounter Id Patient Instructions Last Modified By Organization Details Last Modified Time 12/03/2021 [id number] cont same drops recheck 6 months complete exam with nn oct [email or web address] Not available 12/03/2021 11:16:44 06/23/2022 [id number] cont same drops recheck 6 months with HVF 24-2 [email or web address] Not available 06/23/2022 12:04:03 12/29/2022 [id number] continue same drops recheck 6 months complete exam with nn oct [email or web address] Not available 12/29/2022 11:13:50 07/17/2023 [id number] continue same drops recheck iop 6 months with HVF 24-2 [email or web address] Not available 07/17/2023 11:09:49 stable exam no diabetic retinopathy seen her glaucoma appears stable [email or web address] Not available 07/17/2023 11:10:05 02/02/2024 [id number] continue same drops recheck 6 months complete exam (DM and POAG) with nn oct copy of current rx per request [email or web address] Not available 02/02/2024 11:45:52 Reason for Referral None Reported. Results Created Date Observation Date Name Description Value Unit Range Abnormal Flag Note LastModifiedBy Organization Detail LastModifiedTime 12/04/1912/03/2021 visua l field test No observ ation record ed. [email or web address] Not Available 2021 11:14:34 06/24/19 23 06/23/2022 optic al coher ence tomog williams, optic nerve No observ ation record ed. [email or web address] Not Available 2022 12:01:01 12/30/19 23 12/29/2022 visua l field test No observ ation record ed. [email or web address] Not Available 2022 11:11:38 07/17/19 24 07/17/2023 optic al coher ence tomog williams, optic nerve No observ ation record ed. [email or web address] Not Available 2023 11:04:44 02/02/20 24 02/02/2024 visua l field test No observ ation record ed. [email or web address] Not Available 2023 11:41:21 Result Notes None recorded. Problems Name Problem SNOMED Code Status Onset Date Resolution Date Notes Provider Name and Address Organization Details Recorded Time Open-ang le glaucoma 63484040 Active 2004 dx by [facility] ?highest iop prior to drops initial exam DRK 02/26/14 iop 18 od 19 os cct 574 ou gonio 4+open ou cd 0.6 od 0.65 os SHELBY TAPIA MD [address] [place] [address], [address] [place] [address] 1, [facility] 7 11:40:58 Posterio r vitreous detachme nt 018552183 Active 2016 SHELBY TAPIA MD [address] [place] [address], [address] [place] [address], [facility] 3 11:12:25 Excess skin of eyelid 616270037 Active 2016 SHELBY TAPIA MD [address] [place] [address], [address] [place] [address], [facility] 3 11:12:25 Secondar y cataract 221150224 Active 2019 SHELBY TAPIA MD [address] [place] [address], [address] [place] [address], [facility] 3 11:12:24 Astigmat ism 18294784 Active 2015 From Automated Load;Prov ider: Shelby Tapia;Sta tus: Active SHELBY TAPIA MD [address] [place] [address], [address] [place] [address], [facility] 3 11:12:25 Presbyop ia 67980101 Active 2015 From Automated Load;Prov ider: Shelby Tapia;Sta tus: Active SHELBY TAPIA MD [address] [place] [address], [address] [place] [address], [facility] 3 11:12:25 Type 2 diabetes mellitus without complica tion 421992487 Active 2015 From Automated Load;Prov ider: Shelby Tapia;Sta tus: Active SHELBY TAPIA MD [facility] [place], [address], [facility] 3 11:12:25 After-ca taract Completed 201411/08/2019 From Automated Load;Prov ider: Shelby Tapia;Sta tus: Active SHELBY TAPIA MD [facility] [place], [address], [facility] 0 11:40:56 Problem Notes None recorded. Procedures Surgical History Date Name Laterality Status Provider Name and Address Organization Details Recorded Time 4 Visual Field Extended completed SHELBY TAPIA MD [facility] [place], [address], [facility] 02/02/2024 11:44:57 4 OCT/Nerve completed SHELBY TAPIA MD [facility] [place], [address], [facility] 07/17/2023 11:03:56 3 Visual Field Extended completed SHELBY TAPIA MD [facility] [place], [address], [facility] 12/29/2022 11:10:55 3 OCT/Nerve completed [facility] 06/23/2022 09:58:36 2 Visual Field Extended completed SHELBY TAPIA MD [facility] [place], [address], [facility] 12/03/2021 11:14:38 2 OCT/Nerve completed SHELBY TAPIA MD [facility] [place], [address], [facility] 06/03/2021 11:26:51 1 Visual Field Extended completed SHELBY TAPIA MD [facility] [place], [address], [facility] 11/23/2020 11:17:51 1 OCT/Nerve completed SHELBY TAPIA MD [address] [place], [address], [facility] 05/21/2020 11:19:35 0 Visual Field Extended completed SHELBY TAPIA MD [address] [place], [address], [facility] 11/08/2019 11:41:20 9 OCT/Nerve completed Nuha Carmona [facility] 02/19/2019 10:51:14 9 Visual Field Extended completed SHELBY TAPIA MD [address] [place], [address], [facility] 09/21/2018 11:11:32 8 OCT/Nerve completed Karin Aaron [facility] 01/16/2018 09:41:12 8 Visual Field Extended completed SHELBY TAPIA MD [facility] [place], [address], [facility] 09/01/2017 10:53:54 7 OCT/Nerve completed Karin Walker [facility] 12/23/2016 10:44:48 7 Visual Field Extended completed SHELBY TAPIA MD [facility] [place], [address], [facility] 08/18/2016 11:41:25 Cataract Surgery completed Willow Harp [facility] 08/18/2016 11:13:03 Imaging Results Imaging Date Name Status LastModified by [facility] Details LastModified Time 12/03/2021 visual field test completed Information not available 12/03/2021 11:14:34 06/23/2022 optical coherence tomogram, optic nerve completed Information not available 06/23/2022 12:01:01 12/29/2022 visual field test completed Information not available 12/29/2022 11:11:38 07/17/2023 optical coherence tomogram, optic nerve completed Information not available 07/17/2023 11:04:44 02/02/2024 visual field test completed Information not available 02/02/2024 11:41:21 Procedure Notes None recorded. Medical Equipment None Reported. Allergies Allergen ID Allergen Name Allergen Category Reaction Reaction Severity Criticality Documentation Date Start Date Code Code System Note Provider Name and Address Organization Details Recorded Time 859150 Claritin medicatio n Not available Not available Not available 03/10/2016201157 6 RxNorm Comme nt: Creat ed By: Puja Zambrano ;Marlenea lillie Date: 01/25 10:41 :59 AM; Not Available [facility] 6 11:12:13 337204 Product containin g penicilli n (product) medicatio n Not available Not available Not available 03/10/20162005 29952 8001 SNOMED Comme nt: Creat ed By: Reena caceres;Cre ated Date: 03/02 10:02 :53 AM; Not Available [facility] 6 12:01:14 639592 Ceclor medicatio n Not available Not available Not available 03/10/2016200563 5 RxNorm Comme nt: Creat ed By: Reena caceres;Cre ated Date: 03/02 10:03 :10 AM; Not Available [facility] 6 12:01:14 767015 Benadryl medicatio n Not available Not available Not available 01/16/201857806 7 RxNorm Allen Pineda [facility] 8 09:31:29 933454 clindamyc in Not available other severe Not available 12/03/2021 2582 RxNorm Tarik sears [facility] 2 10:45:37 Medications Name Sig Start Date Stop Date Status Note LastModified by Organization Details LastModified Time latanopro st 0.005 % eye drops INSTILL 1 DROP IN THE EVENING INTO LEFT EYE 2023 active Not Available Not Available Not Avai lable glipizide ER 5 mg tablet, extended release 24 hr Two times a day 12/29 completed Frequenc y: bid;Medi cation Descript ion: glipizid e; Dosage:1 ; Route:or al; refills: 0; Quantity :30 tablet, extended release Not Available Not Available Not Available amlodipin e 2.5 mg tablet Daily 5mg 12/29 completed Frequenc y: daily;Me dication Descript ion: amlodipi ne; Dosage:1 ; Route:or al; refills: 0 Not Available Not Available Not Available simvastat in 40 mg tablet Bedtime active Frequenc y: hs;Medic ation Descript ion: simvasta tin; Dosage:1 ; Route:or al; refills: 0 Not Available Not Available Not Available levothyro xine 88 mcg tablet Daily active Frequenc y: daily;Me dication Descript ion: levothyr oxine; Dosage:1 ; Route:or al; refills: 0 Not Available Not Available Not Available aspirin 81 mg tablet Daily active Duration : 30 days;Kailash quency: daily;Me dication Descript ion: aspirin; Dosage:1 ; Route:or al; refills: 0; Quantity :30 Not Available Not Available Not Available hydrochlo rothiazid e 25 mg tablet Daily active Frequenc y: daily;Me dication Descript ion: hydrochl orothiaz mack; Dosage:1 ; Route:or al; refills: 0 Not Available Not Available Not Available timolol maleate 0.5 % eye drops 1 drop both eyes every 12 hours 2023 active Not Available Not Available Not Avai lable oxybutyni n chloride 5 mg tablet Daily 06/23 completed Frequenc y: daily;Me dication Descript ion: oxybutyn in; Dosage:1 ; Route:or al; refills: 0 Not Available Not Available Not Available lisinopri l 40 mg tablet Bedtime active Duration : 30 days;Kailash quency: hs;Medic ation Descript ion: lisinopr il; Dosage:1 ; Route:or al; refills: 5; Quantity :30 tablet Not Available Not Available Not Available fluticaso ne propionat e 50 mcg/actua tion nasal spray,scottie pension active Medicati on Descript ion: fluticas one nasal; Route:na hai; refills: 0 Not Available Not Available Not Available metformin ER 500 mg tablet,ex tended release 24 hr Daily 01/16 completed Frequenc y: daily;Me dication Descript ion: metformi n; Dosage:4 ; Route:or al; refills: 0 Not Available Not Available Not Available Tylenol Extra Strength 500 mg tablet 08/18 completed Medicati on Descript ion: acetamin ophen; Route:or al; refills: 0 Not Available Not Available Not Available vitamin B complex active Not Available Not Available Not Available amlodipin e 5mg active Not Available Not Available Not Available Vitamin D3 Daily active Frequenc y: daily;Me dication Descript ion: cholecal ciferol; Dosage:1 ; Route:or al; refills: 0 Not Available Not Available Not Available Zyrtec active Not Available Not Availa ble Not Available Metamucil 06/23 completed Not Available Not Available Not Available Miralax 06/23 completed Not Available Not Available Not Available pantopraz ole active Not Available Not Available Not Available Janumet XR 50 mg-1,000 mg tablet,ex tended release Take 1 tablet twice a day by oral route. active Not Available Not Available No t Available Vitals None Recorded Social History Question Answer Notes LastModified by Organizat ion Details LastModified Time Tobacco Smoking Status Never Smoker Willow Harp [facility] 08/18/2016 11:12:41 What Was The Date Of Your Most Recent Tobacco Screening? 09/21/2018 Information n ot available 06/04/2019 Sex: Unknown Functional Status None recorded. Mental Status None recorded. Family History Relationship Description Onset Age of this Age Resolved Age Notes LastModified by Organization Details LastModified Time Mother Glaucoma [email or web address] Not available 08/18/2016 11:12:27 Mother Cataract [email or web address] Not available 01/16/2018 09:32:51 Notes:dm cancer mi Medical History Condition Response Diabetes Y Glaucoma Y Glasses/Contacts Y Gynecological HistoryNo gynecological history recorded. Obstetrics History GPAL:G 0 P 0 0 0 0 Past Encounters Encounter ID Performer Location Encounter Start Date Encounter Closed Date Diagnosis/Indication Diagnosis SNOMED-CT Code Diagnosis ICD10 Code Diagnosis Note [id number] SHELBY TAPIA MD [facility]TH[facility]MO [address] [place] [address] 08/18/2016 09:47:56 09/01/2016 08:54:58 [id number] MD AVA CARSON [address] [place] [address] 5 08/18/2016 09:53:13 03/17/2017 15:12:44 Open-angle glaucoma 11707710 H40.1131 stable After-cataract 67289358 H26.558 [id number] MD AVA CARSON [address] [place] [address] 5 12/23/2016 09:40:24 12/26/2016 17:27:25 Open-angle glaucoma 08882200 H40.1131 stable Type 2 isai betes mellitus without complication 216834392 E11.9 no retinopath y ou After-cataract 56185931 H26.493 mild Posterior vitreous detachment 045331081 H43.813 Excess skin of eyelid 24 1411443 H02.831 H02.878 [id number] MD AVA CARSON [address] [place] [address] 5 12/23/2016 09:40:53 12/26/2016 17:27:54 [id number] MD AVA CARSON [address] [place] [address] 5 04/26/2017 10:26:54 04/26/2017 15:52:48 Open-angle glaucoma 99991323 H40.1131 stable After-cataract 54299338 H26.493 mild Excess skin of eyelid 24 3563945 H02.831 H02.893 [id number] MD AVA CARSON [address] [place] [address] 5 09/01/2017 08:59:26 09/01/2017 12:15:46 Open-angle glaucoma 59000042 H40.1131 stable Excess skin of eyelid 24 0318156 H02.831 H02.834 After-cataract 32352190 H26.493 mild [id number] MD AVA CARSON [address] [place] [address] 5 01/16/2018 09:06:51 01/16/2018 10:23:23 Open-angle glaucoma 58564126 H40.1131 stable Type 2 isai betes mellitus without complication 939590881 E11.9 no retinopath y ou-STABLE After-cataract 63392945 H26.493 mild Posterior vitreous detachment 922899476 H43.813 Excess skin of eyelid 24 3196914 H02.831 H02.834 Astigmatism 89416531 H52 .209 Presbyopia 27812666 H52. 4 [id number] SHELBY TAPIA MD [facility]PHTH[facility]MO [facility] [address] [place] [address] 5 05/24/2018 09:08:05 05/24/2018 11:50:13 Open-angle glaucoma 99511159 H40.1131 stable After-cataract 85388822 H26.493 mild Excess skin of eyelid 24 4941484 H02.831 H02.688 [id number] MD AAV CARSON [address] [place] [address] 5 09/21/2018 10:03:18 09/24/2018 11:14:45 Open-angle glaucoma 84717086 H40.1131 stable After-cataract 69812370 H26.493 mild Excess skin of eyelid 24 2754477 H02.831 H02.834 Astigmatism 19240969 H52 .223 Presbyopia 70784921 H52. 4 [id number] MD AVA CARSON [address] [place] [address] 5 02/19/2019 09:58:35 02/20/2019 13:07:52 Open-angle glaucoma 77683645 H40.1131 stable Type 2 isai betes mellitus without complication 100431922 E11.9 no retinopath y ou-stable After-cataract 95247033 H26.493 mild Posterior vitreous detachment 005500383 H43.813 Excess skin of eyelid 24 3268085 H02.831 H02.834 Astigmatism 84789334 H52 .223 Presbyopia 25285331 H52. 4 [id number] SHELBY TAPIA MD OPHTHALMPriya TEIXEIRA [address] [place] [address] 5 11/08/2019 10:16:24 11/08/2019 12:00:27 Open-angle glaucoma 05982971 H40.1131 stable Secondary cataract 70938 4007 H26.007 [id number] SHELBY TAPIA MD [facility] [address] [place] [address] 05/21/2020 09:43:14 05/21/2020 11:42:22 Open-angle glaucoma 26054645 H40.1131 stable Type 2 isai betes mellitus without complication 100875263 E11.9 no retinopath y ou-stable Secondary cataract 58106 4007 H26.493 Excess skin of eyelid 24 2726504 H02.831 H02.834 Posterior vitreous detachment 111737472 H43.813 Astigmatism 59837928 H52 .223 Presbyopia 75766824 H52. 4 [id number] SHELBY TAPIA MD OPHTHALMPriya TEIXEIRA [address] [place] [address] 5 11/23/2020 09:57:25 11/23/2020 11:31:16 Open-angle glaucoma 02037907 H40.1131 stable Secondary cataract 51581 4007 H26.493 Excess skin of eyelid 24 3478568 H02.831 H02.744 [id number] SHELBY TAPIA MD OPHTHALMPriya TEIXEIRA [address] [place] [address] 5 06/03/2021 09:57:20 06/03/2021 11:36:58 Open-angle glaucoma 86860428 H40.1131 stable Type 2 isai betes mellitus without complication 158979503 E11.9 no retinopath y ou-stable Excess skin of eyelid 24 0420741 H02.831 H02.834 Posterior vitreous detachment 982456976 H43.813 [id number] SHELBY TAPIA MD OPHTHALMPriya TEIXEIRA [address] [place] [address] 5 12/03/2021 10:03:36 12/03/2021 11:24:35 Open-angle glaucoma 35073190 H40.1131 stable Secondary cataract 25806 4007 H26.493 Excess skin of eyelid 24 1532441 H02.831 H02.834 [id number] SHELBY TAPIA MD OPHTHALMO LOGI[facility] [address] [place] [address] 06/23/2022 10:19:00 06/23/2022 12:12:46 Open-angle glaucoma 86659033 H40.1131 stable Type 2 isai betes mellitus without complication 328795351 E11.9 no retinopath y ou-stable Excess skin of eyelid 24 9456809 H02.831 H02.834 Posterior vitreous detachment 111265709 H43.813 [id number] SHELBY TAPIA MD [facility]TH[facility] [place] [address] [place] [address] 5 12/29/2022 09:22:31 12/29/2022 11:21:45 Open-angle glaucoma 33682287 H40.1131 stable Excess skin of eyelid 24 0265648 H02.831 H02.834 Secondary cataract 39103 4007 H26.493 [id number] SHELBY TAPIA MD [facility] [address] [place] [address] 07/17/2023 09:08:14 07/17/2023 11:25:16 Open-angle glaucoma 43620227 H40.1131 stable Type 2 isai betes mellitus without complication 271517282 E11.9 no retinopath y ou-stable Secondary cataract 11385 4007 H26.493 Posterior vitreous detachment 117151330 H43.813 Excess skin of eyelid 24 5833112 H02.831 H02.834 Astigmatism 45397210 H52 .223 Presbyopia 38430944 H52. 4 [id number] SHELBY TAPIA MD [facility]PHTH[facility]MO [facility] [address] [place] [address] 02/02/2024 09:04:38 02/02/2024 11:48:21 Open-angle glaucoma 07820345 H40.1131 stable Secondary cataract 97292 4007 H26.493 Excess skin of eyelid 24 6974258 H02.831 H02.834 Astigmatism 57701646 H52 .223 Presbyopia 74119535 H52. 4 Health Concerns Section Related Observation LastModified by Organization Detai ls LastModified Time None Recorded Concern Status LastModified by Organization Details LastModified Time None Recorded Advance Directives Directive None Recorded Payers Encounter Date Sequence Insurance Name Policy Number Policy Gonzalez Covered Member ID Gonzalez Member ID Guarantor Name 12/03/2021 1 [facility] (MEDICARE REPLACEMENT/A DVANTAGE - PPO) [id number] Lyndsay Nugent [id number] Lyndsay Nugent 06/23/2022 1 [facility] (MEDICARE REPLACEMENT/A DVANTAGE - PPO) [id number] Lyndsayclair Nugent [id number] Lyndsay Nugent 12/29/2022 1 [facility] (MEDICARE REPLACEMENT/A DVANTAGE - PPO) [id number] Lyndsay Nugent [id number] Lyndsay Nugent 07/17/2023 1 [facility] (MEDICARE REPLACEMENT/A DVANTAGE - PPO) [id number] Lyndsay Nugent [id number] Lyndsay Nugent 02/02/2024 1 [facility] (MEDICARE REPLACEMENT/A DVANTAGE - PPO) [id number] Lyndsay Nugent [id number] Lyndsay Nugent OBGyn Episode No OBEpisode recorded.
[2024-08-09] MEDS: SODIUM CHLORIDE 0.9% 50ML BAG 50 ML IV (09:00)
[2024-08-09] MEDS: IRON SUCROSE COMPLEX 200 MG in 0.9 % SODIUM CHLORIDE 100 ML 220 MG IV (09:00)
[2024-08-09 09:07] VITALS: BP 147/52; PULSE 65; RESP 16; TEMP 36.7; O2SAT 99
[2024-08-09 09:40] VITALS: BP 150/57; PULSE 67; RESP 16; O2SAT 100
== END 2024-08-09 09:40 | disposition home or self-care (01) ==
LOC: INF 08:43
PROVIDERS: PCP Internal Medicine Adolescent Medicine; Visit Provider Internal Medicine Adolescent Medicine
DX: D50.9 Iron deficiency anemia, unspecified (principal)
CPT/HCPCS: 96365; J1756